=== PATIENT | female | born 1995 | race Caucasian/White ===

== ENCOUNTER 2022-07-01 01:03 | Emergency (ER) | payer OTHER, SELFPAY ==
[2022-07-01 01:05] VITALS: BP 138/94; PULSE 45; RESP 16; O2SAT 99; BMI 27.4
[2022-07-01 01:26] VITALS: BP 152/84; PULSE 41; RESP 18; O2SAT 98
--- NOTE | 2022-07-01 01:31 | ED_ITS ---
HPI - General Adult General Chief complaint: General Medical Stated complaint: high BP, crash migraine Time Seen by Provider: 07/01/22 01:19 Source: patient and family Mode of arrival: ambulatory History of Present Illness HPI narrative: Patient history of anxiety migraine headaches on multiple medications recently started on propranolol admitted at [facility] for same comes here for having a headache nausea vomiting started earlier today with increased anxiety Related Data Allergies Allergy/AdvReac Type Severity Reaction Status Date / Time Unable to Assess Allergy Unverified 07/01/22 01:19 Review of Systems Review of Systems: Yes all other systems are reviewed and are negative [facility] Social History Social History Advance Directives: No Physical Exam ED Vital Signs: Vital Signs - 24 hr 07/01/22 01:05 07/01/22 01:26 07/01/22 05:41 Pulse Rate 45 L 41 L 60 Respiratory Rate 16 18 18 Blood Pressure 138/94 H 152/84 H 133/87 Pulse Oximetry 99 98 99 Oxygen Delivery Method Room Air Room Air Room Air BMI result Body Mass Index 27.4 Appearance: Alert. Oriented X3. Anxious wearing the head phone with goggles shouting in between. Eyes: PERRLA, No Nystagmus ENT: Pharynx normal. Oral Mucosa moist no temporal artery tenderness Neck: Normal inspection. Neck supple. CVS: Normal heart rate and rhythm. Pulses normal. Respiratory: No respiratory distress. Equal air entry bilateral, Abdomen: Soft and nontender. Bowel sounds are present, Skin: Skin warm and dry. Normal skin color. Normal skin turgor. Extremities: No lower extremity edema. No calf tenderness Neuro: Oriented X 3. No motor deficit. Medical Decision Making [facility] Narrative Medical decision making narrative: 550am Patient with chronic intractable migraine headaches been followed by different neurologist been to different hospital at different times while at [facility] had CT scan of the head CT venogram comes here for the headache again patient received multiple doses of migraine medications allergic to opiates hence was not given patient seems to be resting sleeping but per patient's mother needs more medications asking for IV Tylenol which we do not have patient is not vomiting at this time will discharge patient home advised to follow-up with neurologist today Critical Care Time Critical Care Time Critical Care Time: Yes Total Critical Care Time: 60 Attestation: I spent 60 minutes of critical care, with interventions, assessments, speaking to patient, and family. Multiple discussions with the patient and family multiple evaluations and multiple interventions Discharge Plan Discharge Clinical Impression: Migraine NEC/intractable Patient Disposition: Home, Self-Care Instructions: Migraine Headache (ED) Additional Instructions: Rest at home See your neurologist for further management including Botox Continue the regimen as advised by neurologist
[2022-07-01] MEDS: SUMAtriptan succinate 6 MG/0.5 ML VIAL SUBCUT (01:37)
[2022-07-01] MEDS: Ketorolac Tromethamine 30 MG/ML VIAL IVPUSH (01:38)
[2022-07-01] MEDS: 0.9 % Sodium Chloride 1,000 ML 999 ML IV ×2 (01:38→04:53)
[2022-07-01] MEDS: ondansetron HCL 4 MG/2 ML VIAL IVPUSH (01:38)
[2022-07-01] MEDS: Midazolam HCl/PF 2 MG/2 ML VIAL IVPUSH (02:07)
[2022-07-01] MEDS: Butalb/Acetamin/Caff 50/325/40 TABLET 1 TAB PO (03:54)
--- NOTE | 2022-07-01 04:12 | PC.NURSE ---
At 04:02, Pt mother upset and raising voice a this RN that nothing is being done, when Jamey QUINONES just gave Pt Scout at 03:54, this RN was with another Pt.
[2022-07-01] MEDS: diphenhydrAMINE HCL 50 MG/ML VIAL IVPUSH (04:53)
[2022-07-01] MEDS: dexAMETHasone sod phosphate 10 MG/ML VIAL IVPUSH (04:53)
[2022-07-01] MEDS: Metoclopramide HCl 10 MG/2 ML VIAL IVPUSH (04:53)
[2022-07-01] MEDS: Midazolam HCl/PF 2 MG/2 ML VIAL 1 MG IVPUSH (04:54)
[2022-07-01 05:41] VITALS: BP 133/87; PULSE 60; RESP 18; O2SAT 99
== END 2022-07-01 06:24 | disposition home or self-care (01) ==
PROVIDERS: Emergency Provider Internal Medicine; PCP Family Medicine
DX: G43.909 Migraine, unspecified, not intractable, without status migrainosus (principal); R11.2 Nausea with vomiting, unspecified; Z79.899 Other long term (current) drug therapy
CPT/HCPCS: 96372; 96374; 96375; 96376; 99283; 99284; J1100; J1200; J1885; J2250; J2405; J2765; J3030

== ENCOUNTER 2025-09-06 02:47 | Emergency (ER) | payer OTHER, SELFPAY ==
--- NOTE | ~2025-09-06 | XR_ITS ---
CLINICAL HISTORY: SOB 1 view chest x-ray. Comparison: None provided Findings: The lungs appear clear. There is no consolidation, effusion, or pneumothorax. Cardiomediastinal silhouette is within normal limits. IMPRESSION: No acute cardiopulmonary abnormality. This document has been electronically signed by: Loyd Esteves MD on 09/06/2025 04:38:39
[2025-09-06 02:51] VITALS: BP 160/70; PULSE 114; RESP 20; TEMP 37.4; O2SAT 95; BMI 35.4
[2025-09-06 03:04] VITALS: BP 160/70; PULSE 114; RESP 20; TEMP 37.4; O2SAT 95
--- NOTE | 2025-09-06 03:06 | ED.FEVER ---
HPI - Fever General Chief Complaint: Fever Stated Complaint: fever 102.4, body aches, sore throat Time Seen by Provider: 09/06/25 03:05 Source: patient Mode of arrival: ambulatory Limitations: no limitations History of Present Illness ED Provider: Anthony JONES HPI Narrative: The patient is a 29-year-old female presenting to the ED reporting since yesterday she has been experiencing severe fatigue, malaise, with a sore throat, and body aches. The patient denies associated cough, vomiting, diarrhea, chest pain, shortness of breath, or abdominal pain. The patient reports she took Tylenol at 17:00 and 200 mg of ibuprofen at 21:00, and fell asleep, patient reports she woke at 02:00 with a fever of 102.4, contacted her 24 hour [employer] nursing line, who advised her to come to the ED for evaluation. The patient denies any recent sick contacts. Patient reports she did start modafinil for obstructive sleep apnea 9 days ago. Patient reports she is status post remote tonsillectomy for recurrent tonsillitis. Related Data Previous Rx's ?Medication ?Instructions ?Recorded acetaminophen 500 mg capsule 1,000 mg (2 x 500 mg) PO .q8 PRN 09/06/25 fever or pain #30 caps ibuprofen 600 mg tablet 600 mg PO Q8H PRN fever or pain 09/06/25 #30 tabs Allergies Allergy/AdvReac Type Severity Reaction Status Date / Time Opioids - Morphine Analogues Allergy Hives Verified 09/06/25 02:55 Review of Systems Review of Systems: Yes all other systems are reviewed and are negative PMFSH Social History Social History Smoked in Last 30 Days: No Advance Directives: No Advance Directives Information Provided: No Do you have a plan to hurt others: No Plan Physical Exam Vital Signs: Vital Signs: Last Vital Signs Temp 98.8 F 09/06/25 04:34 Pulse 95 09/06/25 04:34 Resp 20 09/06/25 03:04 BP 112/53 L 09/06/25 04:34 Pulse Ox 97 09/06/25 04:34 O2 Del Method Room Air 09/06/25 04:34 BMI result Body Mass Index 35.4 CONSTITUTIONAL: The patient appears non-toxic, well nourished and in no acute distress. Vital signs as documented. HEAD: Atraumatic, normocephalic. EYES: EOMs grossly intact, pupils equal, conjunctiva clear, no exudate. ENT: Nares patent, no discharge. Airway patent, no audible stridor, visible mucosa is pink and moist without noted lesions. Posterior pharynx demonstrates midline nonedematous uvula, no peritonsillar swelling, no exudate. NECK: Trachea is midline, no obvious masses or gross abnormalities. No cervical anterior lymphadenopathy. CHEST: Symmetric movement, normal appearance. LUNGS: LS present and CTAB, no w/r/r. Non-labored work of breathing. CARDIAC: Regular Rhythm, S1/S2 appreciated, no murmurs, rubs or gallops. ABDOMEN: Abdomen soft and non-tender x4 quadrants, no palpable masses or organomegaly. : Deferred. EXTREMITIES: Normal tone, moves all extremities spontaneously without reported pain. No obvious acute injury or deformity noted. NEURO: Alert and oriented x3, CN II-XII appear grossly intact. Cerebellar Functioning grossly intact. No obvious sensory or motor deficits. Speech clear and appropriate. PSYCH: normal affect, appropriate eye contact, fluid speech, with appropriate response to questioning. No reported suicidality or homicidality. SKIN: Warm, dry, color appropriate, normal turgor. No rashes noted. Medications Administered Discontinued Medications Generic Name Dose Route Start Last Admin Trade Name Freq PRN Reason Stop Dose Admin Acetaminophen 975 mg 09/06/25 03:13 09/06/25 03:35 Acetaminophen 325 Mg Tablet PO 09/06/25 03:14 975 mg ONCE ONE Administration Sodium Chloride 1,000 mls @ 999 mls/hr 09/06/25 03:15 09/06/25 04:54 Ns IV 09/06/25 04:15 Infused .Q1H1M JESSICA Infusion Ketorolac Tromethamine 15 mg 09/06/25 03:13 09/06/25 03:35 Ketorolac Tromethamine 15 Mg/Ml Vial IVPUSH 09/06/25 03:14 15 mg ONCE ONE Administration Medical Decision Making Medical Decision Making MDM Narrative: 3:14 AM 09/06/2025 (Penny JONES): The patient is a 29-year-old female presenting to the ED reporting since yesterday she has been experiencing severe fatigue, malaise, with a sore throat, and body aches. The patient denies associated cough, vomiting, diarrhea, chest pain, shortness of breath, or abdominal pain. The patient reports she took Tylenol at 17:00 and 200 mg of ibuprofen at 21:00, and fell asleep, patient reports she woke at 02:00 with a fever of 102.4, contacted her 24 hour [employer] nursing line, who advised her to come to the ED for evaluation. The patient denies any recent sick contacts. Patient reports she did start modafinil for obstructive sleep apnea 9 days ago. Patient reports she is status post remote tonsillectomy for recurrent tonsillitis. On exam the patient appears drawn out, but otherwise nontoxic, patient was noted to be tachycardic upon arrival to the ED. The patient's lung sounds are clear, posterior pharynx demonstrates no peritonsillar swelling, no exudate, there was no cervical anterior lymphadenopathy. The patient is likely suffering from a viral syndrome, we will repeat COVID and influenza swabs, as well as strep. Patient will be evaluated with basic laboratory workup and chest x-ray. The patient will be treated with IV fluid hydration, additional Tylenol, and Toradol. Pending improvement in symptoms and unremarkable workup the patient will likely be appropriate for discharge home with supportive care. 4:41 AM 09/06/2025 (Penny JONES): The patient's laboratory evaluation has resulted and does show leukocytosis of 13.5, with out evidence of anemia, electrolyte abnormality, or JULIAN. The patient's LFTs are largely unremarkable. The patient's viral swabs are negative for COVID influenza, strep swab is negative. Chest x-ray negative for focal consolidation. The patient's heart rate and fever has improved following interventions in the ED, however due to the patient's leukocytosis of 13.5, we will add on urinalysis to evaluate for all possible sources of infection. 5:43 AM 09/06/2025 (Penny JONES): Patient's urinalysis shows no nitrites, trace leukocyte esterase, no bacteria, no white blood cells, no RBCs. In the absence of urinary symptoms the patient is likely not suffering from UTI. Patient will be treated for viral syndrome with supportive care and discharge. Patient states she is comfortable with this plan of care. Admission/Observation Consideration of admission/observation: Escalation of care including admission/observation considered Lab Data MDM Lab Attestation statement: I reviewed the patient's lab results. 09/06/25 03:24 09/06/25 03:24 Labs: Lab Results 09/06/25 09/06/25 09/06/25 Range/Units 03:24 03:28 04:52 WBC 13.5 H (4.8-10.8) X10*3/uL RBC 4.79 (4.20-5.50) X10*6/uL Hgb 14.0 (12.0-16.0) g/dl Hct 40.5 (37.0-47.0) % MCV 84.6 (80.0-98.0) fL MCH 29.2 (27.0-33.0) pg MCHC 34.6 (31.0-35.0) g/dl RDW 11.4 (11.0-16.0) % Plt Count 278 (160-400) X10*3/uL MPV 9.2 L (9.4-12.3) fL Immature Gran % (Auto) 0.3 (0.0-0.4) % Neut % (Auto) 82.2 H (45-73) % Lymph % (Auto) 11.4 L (20-40) % [place] % (Auto) 5.3 (2-11) % Eos % (Auto) 0.3 (0-4) % Baso % (Auto) 0.5 (0-2) % Lymph # (Auto) 1.5 (1.2-4.9) X10*3/uL [place] # (Auto) 0.7 (0.1-1.2) X10*3/uL Eos # (Auto) 0.0 (0.0-0.4) X10*3/uL Baso # (Auto) 0.1 (0.0-0.2) X10*3/uL Abs Immat Gran (auto) 0.04 H (0.00-0.03) X10*3/uL Absolute Neuts (auto) 11.1 H (2.0-8.3) x10*3/uL Absolute Nucleated RBC 0.000 (0.0-0.012) X10*3/uL Nucleated RBC % (auto) 0.0 (0.0-0.2) /100WBC Sodium 137 (135-145) mmol/L Potassium 3.7 (3.3-5.1) mmol/L Chloride 106 (96-108) mmol/L Carbon Dioxide 21 L (22-29) mmol/L Anion Gap 14 (12-20) BUN 14 (9-16) mg/dL Creatinine 0.75 (0.5-1.4) mg/dL Estim Creat Clear Calc 120.4 Estimated GFR > 60 Random Glucose 119 H (60-115) mg/dL Calcium 9.4 (8.4-10.2) mg/dL Total Bilirubin 0.3 (0.0-1.0) mg/dL AST 21 (5-31) U/L ALT 36 H (0-31) U/L Alkaline Phosphatase 78 (39-117) U/L Total Protein 7.2 (6.5-8.0) g/dL Albumin 4.5 (3.5-5.0) g/dL Urine Color Yellow Urine Appearance Clear Urine pH 6.0 (5.0-9.0) Ur Specific Emery 1.020 (1.005-1.025) Urine Protein Negative (Neg-Trace) mg/dL Urine Glucose (UA) Negative (Negative) mg/dL Urine Ketones Negative (Negative) mg/dL Urine Blood Negative (Negative) Urine Nitrite Negative (Negative) Ur Leukocyte Esterase Trace H (Negative) Urine RBC 0-2 (0-2) /HPF Urine WBC 0-5 (0-5) /HPF Ur Squamous Epith Cells 0-2 (0-2) /HPF Urine Bacteria None Seen (None Seen) Hyaline Casts 0-2 (0-2) /LPF COVID-19 (FLORENTIN) Negative (Negative) COVID-19 Clin Com See Note Influenza Type A (ABDIRIZAK) Negative (Negative) Influenza Type B (ABDIRIZAK) Negative (Negative) Influenza A & B Note See Note S. pyogenes GrpA ABDIRIZAK Negative (Negative) Radiology Impression Discussion of test interpretation with radiology: I have reviewed the radiologist's reading. Radiologist Impression: 1 view chest x-ray. Comparison: None provided Findings: The lungs appear clear. There is no consolidation, effusion, or pneumothorax. Cardiomediastinal silhouette is within normal limits. IMPRESSION: No acute cardiopulmonary abnormality. This document has been electronically signed by: Loyd Esteves MD on 09/06/2025 04:38:39 Prescription Management I considered prescription management with: Pain Medication and Antibiotic Discharge Plan Discharge Clinical Impression: Acute viral syndrome Patient Disposition: Home, Self-Care Instructions: Viral Syndrome (ED) Additional Instructions: Thank you for choosing [facility]'s Emergency Department for your care today. Thankfully your laboratory evaluation, chest x-ray, viral swabs, and urinalysis today are all reassuring. You tested negative for COVID, influenza, strep throat, pneumonia, or a UTI. At this time there is no indication for admission to the hospital or continued ED observation, and it is safe to discharge you home. Your symptoms are likely due to a viral illness. At this time there is no indication for antibiotics. You should take alternating (staggered) doses of ibuprofen 600mg and Tylenol 1000mg every 4 hours as needed for any additional fever or pain. Please stay well hydrated and get plenty of rest. Please employer excellent hand washing techniques to avoid spreading illness. Please follow up with your primary care physician for re-evaluation, additional management of your symptoms, and continued preventative care. If you do not have a primary care physician, please call the [facility] at [phone] to establish a new primary care physician. While waiting to establish your new primary care physician, you can call our Walk-in Care [facility] at [phone] for non-emergency needs. Please return to the emergency department if you develop a severe or sudden change in your symptoms, a fever over 100.4 that does not improve with Tylenol or Ibuprofen, recurrent vomiting, or any other new or worsening symptoms or concerns. Prescriptions: New acetaminophen 500 mg capsule 1,000 mg PO .q8 PRN (Reason: fever or pain) Qty: 30 0RF ibuprofen 600 mg tablet 600 mg PO Q8H PRN (Reason: fever or pain) Qty: 30 0RF Referrals: Cielo Li MD [Primary Care Provider, Internal Medicine] Clinical Impression: Acute viral syndrome Print Language: Omani
[2025-09-06 03:33] LABS: MANUAL DIFF FLAG NO
[2025-09-06 03:34] LABS: Hematocrit 40.5 % (37.0-47.0); Hemoglobin 14.0 g/dl (12.0-16.0); Imm Gran Abs Auto 0.04 X10*3/uL (0.00-0.03); Imm Gran Pct Auto 0.3 % (0.0-0.4); Lymphocytes Absolute Auto 1.5 X10*3/uL (1.2-4.9); Mean Corpuscular HGB Conc 34.6 g/dl (31.0-35.0); Mean Corpuscular Hemoglobin 29.2 pg (27.0-33.0); Mean Corpuscular Volume 84.6 fL (80.0-98.0); NRBC Abs Auto 0.000 X10*3/uL (0.0-0.012); NRBC Pct Auto 0.0 /100WBC (0.0-0.2); Platelet Count 278 X10*3/uL (160-400); Red Blood Count 4.79 X10*6/uL (4.20-5.50); White Blood Count 13.5 X10*3/uL (4.8-10.8)
--- OUTSIDE RECORDS SUMMARY | 2025-09-06 03:39 | XMS_ITS | Clinical Summary ---
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 Not on judith e 03/10/2023 Are you concerned about learning? Not on file 03/10/2023 No 03/10/2023 No 03/10/2023 Digital Access Answer Date Recorded No 04/10/2023 No 04/10/2023 No 04/10/2023 Reliable internet access at home? Not on file 04/10/2023 Device with a working camera? Not on file Comments Unknown Sex and Gender Information Value Date Recorded Sex Assigned at Female 07/10/2024 10:44 AM EDT Legal Sex Female 11:48 AM EST Gender Identity Genderqueer/Queer 07/10/2024 10: 44 AM EDT Sexual Orientation Queer 07/10/2024 10 :44 AM EDT Plan of Treatment Health Maintenance Due Date Last Done Comments Adult Td,Tdap Booster 1997 DEPRESSION SCREENING 2009 SMOKING Hx and SMOKELESS TOBACCO SCREENING 2010 HEPATITIS C SCREENING 2015 HIV ONE-TIME SCREENING (18-6 5 YEARS) 2015 PNEUMOCOCCAL VACCINES (0-49 years) (1 of 2 - PCV) 2016 PAP SMEAR 2018 INFLUENZA VACCINE (#1) 2025 COVID-19 VACCINE (3 - 2024-2 6 season) 2025 12/26/2020, 11/28/2020 HEPATITIS A VACCINES Aged Out No long er eligible based on patient's age to complete this topic HIB VACCINES Aged Out No longer eligi ble based on patient's age to complete this topic MENINGOCOCCAL VACCINES (ACWY) Aged Out No longer eligible based on patient's age to complete this topic MENINGOCOCCAL VACCINES (B) Aged Out N o longer eligible based on patient's age to complete this topic Medical Devices Not on file Insurance PPO EPO [facility] [place] [address] [place] [address] [place] [address] [place] [address] [place] [address] [place] [address] PPO EPO [facility] PPO EPO Care Teams Forward Air Controller/Air Officer Relationship Specialty Start Date End Date Gaby Nayak DO [facility] [place] [address] PCP - General Family Medicine 05/02/22 Additional Source Comments The information contained in this document represents components of the legal health record. It is not the complete legal health record.[facility]
--- OUTSIDE RECORDS SUMMARY | 2025-09-06 03:40 | XMS_ITS | Data Portability ---
Author Organization [facility], [facility] Address [address] [place] [phone] Assessment Encounter Date Assessment Date Assessment LastModified by Organization Details LastModified Time 05/13/2022 05/13/2022 26yo with b/l likley b/l CTS reviewed impression and Dx and conservative and surgical treatment options Plan: 1) 0.3cc 1%lido plain and 0.7cc betamethasone sodium phosphate and acetate 30mg/5ml blend injected into bilateral carpal tunnel under sterile conditions. Patient tolerated well. 2) splint 3) unable to take nsaids 4) f/u 6 weeks and if persists will get EMG 5) OT [email or web address] Not available 05/13/2022 14:42:44 10/04/2022 10/04/2022 27yo female with b/l recurent and persitent CTS reviwed impression and Dx and conservative and surgical treatment options discussed ectr vs open, post-op expectations and risks. I reviewed the risks of procedure including but not limited to bleeding, infection, injury to tendon/nerve/ves sels, decreased hand function, stiffness, RSD/CRPS, no change or worsening of symptoms. Plan: 1) 0.3cc 1%lido plain and 0.7cc betamethasone sodium phosphate and acetate 30mg/5ml blend injected into bilateral carpal tunnel under sterile conditions. Patient tolerated well. 2) splint and nsaids 3) f/u prn [email or web address] Not available 10/04/2022 16:13:37 03/21/2023 03/21/2023 27yo female with b/l recurrent and persistent CTS reviewed impression and Dx and conservative and surgical treatment options discussed ectr vs open, post-op expectations and risks. I reviewed the risks of procedure including but not limited to bleeding, infection, injury to tendon/nerve/ves sels, decreased hand function, stiffness, RSD/CRPS, no change or worsening of symptoms. Plan: 1) EMG 2) advise f/u with another hand specialist as I am leaving the area in April [email or web address] Not available 03/21/2023 13:30:39 Plan of Treatment Reminders Order Date Submit Date Provider Last Modified By Organization Details Last Modified Time Details Appointments None recorded. Lab None recorded. 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 2x week 1 month 2021 022 [email or web address] Not available 11:10:45 Procedures None recorded. Surgeries None recorded. Imaging None recorded. Medication Orders None recorded. Patient TargetsNo targets recorded. Patient InstructionsNo instructions recorded. Reason for Referral Please eval and treat b/l ca rpal tunnel syndrome with all modalities. 2x week 1 month Referring Physician: Bakari Martinez, Plastic/Reconstructive Surg., [phone] Encounter Date: 05/13/2022 Nerve Conduction Referral fo r Bilateral carpal tunnel syndrome Referring Physician: Bakari Martinez Plastic/Reconstructive Surg., Encounter Date: 03/21/2023 Problems Name Problem SNOMED Code Status Onset Date Resolution Date Notes Provider Name and Address Organization Details Recorded Time Pain in pelvis 96871226 Active 2015 Descript ion: PELVIC PAIN Not Available [facility] 11:27:35 Acute pharyngi tis 530017385 Completed 201710/17/2018 Not Available [facility] 11:27:35 Generali zed aches and pains 45089684 Completed 201710/17/2018 Descript ion: BODY ACHES Not Available [facility] 11:27:35 Hypertro phy of breast 064021235 Active 2019 Not Available [facility] 11:27:35 Gender identity disorder of shann[place] d 66716179 Active 2019 Not Available [facility] 11:27:35 Adverse reaction Completed 201908/31/2020 Descript ion: ADVERSE EFFECT OF DRUG/MED S/BIOL SUBST, INIT Not Available [facility] 11:27:35 Bilatera l carpal tunnel syndrome [id number] 681883 [facility] 14:[facility]04 Problem Notes None recorded. Medical Equipment None Reported. Allergies Allergen ID Allergen Name Allergen Category Reaction Reaction Severity Criticality Documentation Date Start Date Code Code System Note Provider Name and Address Organization Details Recorded Time 566836 oxycodone medicatio n Not available Not available Not available 09/01/20212015 7804 RxNorm Sever ity: Criti yojana Entry Date: 05/19 Not Available [facility] 14:47:52 Medications Name Sig Start Date Stop Date Status Note LastModified by Organization Details LastModified Time lamotrigine 150 mg tablet TAKE 1 TABLET BY MOUTH TWICE A DAY active Not Available Not Available No t Available prednisone 10 mg tablet TAKE 4 TABLETS X2DAYS, 3 TAB X2DAYS, 1 TAB X2DAYS THEN 1/2 TABLET X2DAYS active Not Available Not Available No t Available trazodone 50 mg tablet TAKE 1 TABLET BY MOUTH ONCE A DAY, AT BEDTIME WITH FOOD WITH FOOD active Not Available Not Available No t Available citalopram 10 mg tablet TAKE 3 TABLETS BY MOUTH EVERY DAY active Not Available Not Available No t Available prednisone 20 mg tablet TAKE 3 TABLETS BY MOUTH EVERY DAY FOR 4 DAYS active Not Available Not Available No t Available clobetasol 0.05 % topical cream APPLY TO AFFECTED AREA TWICE A DAY FOR 10 DAYS active Not Available Not Available No t Available lithium carbonate ER 300 mg tablet,exten ded release TAKE 1 TABLET BY MOUTH EVERY DAY active Not Available Not Available No t Available prochlorpera zine maleate 10 mg tablet TAKE 1 TABLET BY MOUTH 3 TIMES A DAY,X14 DAYS, NEEDED FOR MIGRAINE/NA USEA active Not Available Not Available No t Available magnesium oxide 400 mg (241.3 mg magnesium) tablet TAKE 1 TABLET BY MOUTH EVERY DAY active Not Available Not Available No t Available lithium carbonate 300 mg capsule TAKE 1 CAPSULE BY MOUTH TWICE A DAY active Not Available Not Available No t Available propranolol ER 80 mg capsule,24 hr,extended release TAKE 1 CAPSULE BY MOUTH EVERY DAY active Not Available Not Available No t Available gabapentin 100 mg capsule TAKE 1 CAPSULE BY MOUTH TWICE A DAY active Not Available Not Available No t Available methylpredni solone 4 mg tablets in a dose pack TAKE 6 TABLETS ON DAY 1 DIRECTED ON PACKAGE AND DECREASE BY 1 TAB EACH DAY FOR A TOTAL OF 6 DAYS active Not Available Not Available No t Available Vienva 0.1 mg-20 mcg tablet TAKE 1 TABLET ORALLY DAILY *SKIP SUGAR PILLS* active Not Available Not Available No t Available riboflavin (vitamin B2) 400 mg tablet TAKE 1 TABLET BY MOUTH EVERY DAY active Not Available Not Available No t Available Emgality Pen 120 mg/mL subcutaneous pen injector INJECT 120 MG SUBCUTANEOU S INJECTION TWICE IN FIRST MONTH, THEN ONCE PER MONTH active Not Available Not Available No t Available Nurtec ODT 75 mg disintegrati ng tablet TAKE 1 TABLET BY MOUTH EVERY DAY NEEDED FOR MIGRAINE, MAX 1 TABLET DAILY active Not Available Not Available No t Available Vitals Date Recorded Body weight Body mass index (BMI) Body height Provider Name and Address Organization Details Last Updated DateTime 03/20/2025 22344.18 g 32.9 kg/m2 160.02 cm Tamara Malin [facility] 03/20/2025 10:38:23 Social History Question Answer Notes LastModified by [facility] Details LastModified Time Tobacco Smoking Status Never Smoker Not Available [facility] 10/18/2021 21:52:56 What Was The Date Of Your Most Recent Tobacco Screening? 09/10/2021 [email or web address] Information not available 11/02/2022 Are You Passively Exposed To Smoke? No Information not available 10/18/2021 Has Tobacco Cessation Counseling Been Provided? No Information not available 10/18/2021 Sex: Unknown Functional Status Question Answer Note LastModified by Organizat ion Details LastModified Time Do you use any illicit or recreational drugs? No Information not available 10/18/2021 What is your level of alcohol consumption? alcohol use, comments : yes Information not available 10/18/2021 Mental Status None recorded. Family History Nothing Reported Notes:General Comments: Mate cora great grandmother with breast cancer (dx: in her 90s) Allergic Rhinitis Medical History No medical history recorded. Gynecological History Statement/Question Response Date of LMP 09/17/2018 Obstetrics History GPAL:G 0 P 0 0 0 0 Past Encounters Encounter ID Performer Location Encounter Start Date Encounter Closed Date Diagnosis/Indication Diagnosis SNOMED-CT Code Diagnosis ICD10 Code Diagnosis IMO Codes Diagnosis Note [id number] MD MATEO [facility] [address] 05/13/2022 14:05:48 05/13/2022 14:45:25 Bilateral carpal tunnel syndrome [id number] 9805711 G56.03 [id number] MD MATEO Krishnamurthy[facility] _1_[address] [address] 10/04/2022 15:52:18 10/10/2022 07:37:23 Bilateral carpal tunnel syndrome 0851982511 3259383 G56.03 [id number] Bakari Martinez MD [facility] _[address] [address] 03/21/2023 13:28:00 03/21/2023 13:36:50 Bilateral carpal tunnel syndrome 8910394345 3586818 G56.03 [id number] Darion Cunha MD [facility] _[address] [address] 03/20/2025 10:32:44 03/20/2025 12:24:07 Gender dysphoria 17548496 F64.9 [id number] -Referring physician s note reviewed.- Psychology note reviewed and scanned into EMR-The patient is an excellent candidate for gender affirming surgery to remove their breasts. I recommend amputation of the breast with free grafting of the nipple/are gabino, which is necessary because of the ptosis and excess skin present. I reviewed the resulting transverse breast and periareola r scars. The patient is seriously considerin g the option of removing their nipples completely , which is also reasonable . -The patient appears to have a mature understand ing of the procedure risks and has a good support system at home. -Free grafting of the nipple/are gabino, if performed, will result in loss of nipple sensation and the risk of graft loss, flattening , or hypopigmen tation. They will be unable to breastfeed .-I counseled the patient about the risks of the surgery, which include, but are not limited to, bleeding/b ruising, seroma, the need for drains, infection, ugly scarring, wound dehiscence or delayed wound healing, numbness of the chest skin and/or nipples, nipple/are olar graft loss, asymmetry, residual excess skin or tissue, under or over correction , contour irregulari ties, recurrence of excess skin or tissue, and the need for additional procedures . I explained that the excised tissue will be sent to the pathology lab following surgery. I counseled the patient that there is still a small amount of breast tissue left after this procedure, which is important to know from a breast cancer screening perspectiv e.-The patient will need to wear a compressio n garment for 6 weeks after surgery and he will need to take 4 weeks off of heavy exercise.- Insurance may or may not cover the procedure. I will submit a pre-author ization request.-T he patient will need preop medical clearance prior to surgery. They will need to stop their oral contracept caitlin for 1 month before/aft er surgery. -A prior authorizat ion request will be submitted for CPT code(s): 28828-55 and 55710-97 I spent 45 minutes caring for this patient on the day of the visit, which included chart review, direct patient counseling and examinatio n, and documentat ion of the encounter. Health Concerns Section Related Observation LastModified by Organization Detai ls LastModified Time None Recorded Concern Status LastModified by Organization Details LastModified Time None Recorded Advance Directives Directive None Recorded Payers Insurance Date Sequence Insurance Name Policy Number Policy Jackson Covered Member ID Jackson Member ID Guarantor Name 03/20/2025 1 [employer] [id number] U Kathleen Nancy [id number] Cristy Cruz 03/20/2025 1 [place] [id number] Cristy Cruz [id number] Cristy Cruz Notes Date Note Type Note Provider Name and Address Organization Details Recorded Time 05/13/2022 text/html 26 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 who is 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 here for evaluation of b/l R>L hand pain, weakness paresthesia and pins and needles of all digits Present for several yearsConcerns with severe right hand weakness and numbness that radiates up forearmPt states they work in a 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, 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 and 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 has not been able to work due to pain, weakness and numbnessInterventio ns- Pt was seen by an outside specialist who recommended an EMG study but pt did not obtainPt wears bilateral wrist splints at night Bakari serra [facility] 05/13/2022 14:43:30 10/04/2022 text/html 27 y/o female 4.5 months s/p steroid injected into bilateral carpal tunnel 05/13/22 here for follow up Concerns with recurring bilateral wrist pain x2 weeksPt states she's in school again and has been typing moreCompliant with OTinjectios helped singificantlyhasn't gotten EMG Bakari serra [facility] 10/04/2022 16:14:18 03/21/2023 text/html 27yo female with b/l recurrent and peristent CTS 5 months s/p steroid injected into bilateral carpal tunnel 10/04/22 here for follow up Past HPI:s/p steroid injected into bilateral carpal tunnel 05/13/22 Bakari serra [facility] 03/21/2023 13:31:17 03/20/2025 text/html ROS as noted in the HPI 29 y/o gender nonbinary (AFAB) patient with h/o migraines, depression, eating disorder, and Langerhans cell histiocytosis (s/p pelvic XRT) who is here to discuss removal of their breasts for gender affirmation.I performed a bilateral breast reduction on 09/30/2020. The patient is happy with how they healed from the surgery. However, they feel that the presence of breasts (even smaller) is inconsistent with their gender identity. Cristy is interested in moving forward with complete removal of the breasts and a desire to go flat with a more male-appearing chest. We had discussed this previously in 2020. They are now interested in moving forward. They are strongly considering NOT keeping their nipples (and having them removed completely).They obtained a letter of support from their psychiatrist, which is uploaded in our system already (Dr. Anjali Muñoz, dated 08/30/24). -BMI: 32.9-Current cup size: B-C cup-Desired cup size: Flat.-Children: None.-Contraception : on OCPs-History of breast disease, breast cancer, or prior breast surgery: Breast reduction 2019-Family history of breast cancer: No family history of breast cancer Darion Cunha MD [address] [place] [address],[address], [place], [address], [facility] - [facility] 03/20/2025 12:24:03 OBGyn Episode No OBEpisode recorded.
--- OUTSIDE RECORDS SUMMARY | 2025-09-06 03:40 | XMS_ITS | Encounter Summary ---
Author Organization [facility] Address [address] [place] [address] Phone Care Team Providers Care Decontamination Technician Name Role Phone Arnaud Brown MD Primary Care Provider [phone] Gaby Nayak DO Primary Care Provider Encounter Details Date Type Department Care Team (Latest Contact Info) Description 02/23/2016 Transcribe Orders [facility] SPECIM[facility] [address] [place] [address] Sanchez Gayle MD [address] [place] [address] No diagnosis (Primary Dx) Social History Tobacco Use Types Packs/Day Years Used Date Smoking Tobacco: Never Assessed Comments Unknown Sex and Gender Information Value Date Recorded Sex Assigned at Female 07/10/2024 10:44 AM EDT Legal Sex Female 11:48 AM EST Gender Identity Genderqueer/Queer 07/10/2024 10: 44 AM EDT Sexual Orientation Queer 07/10/2024 10 :44 AM EDT documented as of this encounter Plan of Treatment Not on file documented as of this encounter Procedures Procedure Name Priority Date/Time Associated Diagnosis Comments PTT STAT 02/23/2016 6:02 PM EDT No diagnosis PT-INR STAT 02/23/2016 6:02 PM EDT No diagnosis documented in this encounter Results * PT-INR (02/23/2016 6:02 PM EDT) PT 10.3 9.4 - 12.9 sec [facility] INR 0.9 0.9 - 1.1 [facility] Comment:Therapeutic Range 2. 0-3.5 02/23/2016 6:02 PM EDT 02/23/2016 6:05 PM EDT Sanchez Gayle MD LAB BLOOD ORDERABLES Kadi l Result Performing Organization Address [facility] Co de Phone Number [facility] [address] [place] [address] * PTT (02/23/2016 6:02 PM EDT) APTT 30.6 25.1 - 36.5 sec [facility] 02/23/2016 6:02 PM EDT 02/23/2016 6:05 PM EDT Sanchez Gayle MD LAB BLOOD ORDERABLES Kadi l Result Performing Organization Address City/[facility] Co de Phone Number [facility] [address] [place] [address] documented in this encounter Visit Diagnoses Diagnosis No diagnosis- Primary documented in this encounter Care Teams Decontamination Technician Relationship Specialty Start Date End Date Arnaud Brown MD [address] [place] [address] [address] [place] [address] PCP - General 03/20/15 05/01/22 Gaby Nayak DO [address] [place] [address] PCP - General Family Medicine 05/02/22 documented as of this encounter Additional Source Comments The information contained in this document represents components of the legal health record. It is not the complete legal health record.[facility]
--- OUTSIDE RECORDS SUMMARY | 2025-09-06 03:40 | XMS_ITS | Encounter Summary ---
Author Organization [facility] Address [address] [place] [address] Phone Care Team Providers Care Technician [employer]iconductor Development Name Role Phone Arnaud Brown MD Primary Care Provider [phone] Gaby Nayak DO Primary Care Provider Encounter Details Date Type Department Care Team (Latest Contact Info) Description 02/16/2016 Transcribe Orders [facility] SPECIMEN [address] [place] [address] Sanchez Gayle MD [address] [place] [address] Unifocal Langerhans-cell histiocytosis (Primary Dx) Social History Tobacco Use Types [...] on file documented as of this encounter Results * (ABNORMAL) CBC (02/16/2016 4:39 PM EDT) WBC 8.49 4 - 11 K/uL [facility] RBC 4.71 3.9 - 5.03 M/uL [facility] HGB 14.5 12 - 15.5 g/dL [facility] HCT 40.5 34.9 - 44.5 % [facility] PLT 312 135 - 400 K/uL [facility] MCV 86.0 80 - 100 fL [facility] MCH 30.8 27 - 34 pg [facility] MCHC 35.8 31.5 - 36.5 g/dL [facility] RDW 11.3(L) 11.9 - 14.8 % [facility] MPV 10.4 9.6 - 12 fl [facility] 02/16/2016 4:39 PM EDT 02/16/2016 5:33 PM EDT us Sanchez Gayle MD LAB BLOOD ORDERABLES Kadi l Result [facility] [address] [place] [address] * HCG (quantitative blood) (02/16/2016 4:39 PM EDT) HCG (Quantitative) <1 IU/L [facility] Comment: Expected Ranges: Negative Less than 5 mIU/ml < 1 Week 5-25 mIU/ml 0-1 Week 5-50 mIU/ml 1-2 Weeks 50-500 mIU/ml 2-3 Weeks 100-5,000 mIU/ml 3-4 Weeks 500-10,000 mIU/ml 4-5 Weeks 1,000-50,000 mIU/ml 5-6 Weeks 10,000-100,000 mIU/ml 6-8 Weeks 15,000-200,000 mIU/ml 2-3 Months 10,000-100,000 mIU/ml Other conditions, in addition to , may rarely produce consistently elevated HCG results, these may include interfering substances. Clinical correlation is suggested. Ectopic pregnancies may have HCG levels persistently <25. Method: Janell Sancho e601 Total HCG assay 02/16/2016 4:39 PM EDT 02/16/2016 5:33 PM EDT us Sanchez Gayle MD LAB BLOOD ORDERABLES Kadi l Result Performing Organization Address City/[facility] Co de Phone Number [facility] [address] [place] [address] * (ABNORMAL) Basic metabolic panel (02/16/2016 4:39 PM EDT) SODIUM 140 136 - 145 mmol/L [facility] CHLORIDE 100 99 - 109 mmol/L [facility] POTASSIUM 4.3 3.5 - 5.2 mmol/L [facility] CO2 23 20 - 31 mmol/L [facility] BUN 19 9 - 23 mg/dL [facility] CREATININE 0.70 0.5 - 1.3 mg/dL [facility] GLUCOSE 117(H) 74 - 106 mg/dL [facility] CALCIUM 9.7 8.7 - 10.4 mg/dL [facility] EGFR >60 mL/min/1.7 3m2 [facility] Comment:Abnormal if <60 mL/m in/1.73m2. If patient is -Indonesian, multiply the result by 1.21. ANION GAP 17 3 - 17 mmol/L [facility] 02/16/2016 4:39 PM EDT 02/16/2016 5:33 PM EDT us Sanchez Gayle MD LAB BLOOD ORDERABLES Kadi l Result Performing Organization Address [facility] Co de Phone Number [facility] [address] [place] [address] documented in this encounter Visit Diagnoses Diagnosis Unifocal Langerhans-cell histiocytosis- Primary documented in this encounter Care Teams Technician Semiconductor Development Relationship Specialty Start Date End Date Arnaud Brown MD [address] [place] [address] [address] [place] [phone] PCP - General 03/20/15 05/01/22 Gaby Nayak DO [address] [place] [address] PCP - General Family Medicine 05/02/22 documented as of this encounter Additional Source Comments The information contained in this document represents components of the legal health record. It is not the complete legal health record.[facility]
[2025-09-06 03:47] LABS: Alanine Aminotransferase 36 U/L (0-31); Albumin Level 4.5 g/dL (3.5-5.0); Alkaline Phosphatase 78 U/L (39-117); Anion Gap 14 (12-20); Aspartate Amino Transferase 21 U/L (5-31); Blood Urea Nitrogen 14 mg/dL (9-16); Calcium 9.4 mg/dL (8.4-10.2); Carbon Dioxide 21 mmol/L (22-29); Chloride 106 mmol/L (96-108); Creatinine Clr Calc Pharmacy 120.4; Estimated Glomerular Filt Rate > 60; Potassium 3.7 mmol/L (3.3-5.1); Sodium 137 mmol/L (135-145); Total Protein 7.2 g/dL (6.5-8.0)
[2025-09-06 03:57] LABS: COVID-19 Test Negative (Negative); IDNOW Serial# 08D9AD1C; IDNOW Serial# 55D5AD1C; IDNOW Serial# 58CA691E; Influenza B2 Negative (Negative); Strep A Nucleic Acid Negative (Negative)
[2025-09-06 04:34] VITALS: BP 112/53; PULSE 95; TEMP 37.1; O2SAT 97
[2025-09-06 04:57] LABS: Appearance Urine Clear; Glucose Urine UA Negative (Negative); PH 6.0 (5.0-9.0); Specific Gravity - Urine 1.020 (1.005-1.025); UMIC TRIGGER UACC YES
[2025-09-06 06:17] VITALS: BP 112/53; PULSE 95; RESP 14; TEMP 37.1; O2SAT 97
== END 2025-09-06 06:27 | disposition home or self-care (01) ==
PROVIDERS: Physician Assistant; Emergency Provider Emergency Medicine; PCP Pediatrics
DX: B34.9 Viral infection, unspecified (principal); R06.02 Shortness of breath; J02.9 Acute pharyngitis, unspecified; R53.83 Other fatigue; D72.829 Elevated white blood cell count, unspecified; Z03.818 Encounter for observation for suspected exposure to other biological agents ruled out
CPT/HCPCS: 36415; 71045; 80053; 81001; 81003; 85025; 87502; 87635; 87651; 96361; 96374; 99285; J1885

== ENCOUNTER → 2025-09-06 03:53 | Outpatient (BNV) | payer OTHER, SELFPAY | PROVIDERS: Emergency Provider Emergency Medicine; PCP Pediatrics; Visit Provider Radiology Diagnostic Radiology | DX: R06.02 Shortness of breath (principal) | CPT/HCPCS: 71045 ==